=== PATIENT | male | born 1945 | race Caucasian/White ===

== ENCOUNTER 2018-10-13 14:55 | Emergency (ER) | payer MEDICARE, BC ==
[2018-10-13 16:10] LABS: #Eosinphils 0.1 thou/uL (0.0-0.7); #Lymphocytes 1.2 thou/uL (1.20-3.40); #Monocytes 0.8 thou/uL (0.11-0.59); #Neutrophils 7.3 thou/uL (1.40-6.50); %Basophils 0.1 % (0.0-1.0); %Eosinophils 1.5 % (0.0-10.0); %Lymphocytes 12.2 % (21.0-51.0); %Monocytes 8.5 % (0.0-10.0); %Neutrophils 77.6 % (42.0-75.0); Hemoglobin 12.7 g/dL (14.0-18.0); Mean Corpuscular HGB CONC 33.7 g/dL (32.0-36.0); Mean Corpuscular Hemoglobin 29.7 pg (27.0-31.0); Mean Corpuscular Volume 88.3 fL (78.0-98.0); Mean Platelet Volume 7.4 fL (7.4-10.4); Platelet Count 167 thou/uL (130-400); RBC Distribution Width 13.1 % (11.5-14.5); Red Blood Cell (RBC) Count 4.27 mill/uL (4.70-6.10); White Blood Cell (WBC) Count 9.4 thou/uL (4.8-10.8)
[2018-10-13 16:45] LABS: ALT (SGPT) 14 U/L (8-55); AST (SGOT) 13 U/L (5-34); Albumin 3.5 g/dL (3.4-4.8); Alkaline Phosphatase 67 U/L (40-150); Anion Gap 13 mmol/L (10-20); BUN (Urea Nitrogen) 22 mg/dL (8.4-25.7); Bilirubin, Total 0.5 mg/dL (0.2-1.2); Calc. Creatinine Clearance 0 mL/min (70-130); Calcium 9.5 mg/dL (7.8-10.44); Carbon Dioxide 23 mmol/L (23-31); Chloride 107 mmol/L (98-107); Estimated GFR-MDRD Greater than 90; Globulin 2.7 g/dL (2.4-3.5); Potassium 3.7 mmol/L (3.5-5.1); Protein, Total 6.2 g/dL (5.8-8.1); Sodium 139 mmol/L (136-145)
[2018-10-13 17:00] LABS: Glucose 103 mg/dL (83-110)
--- NOTE | 2018-10-13 17:04 | ULT ---
VENOUS DOPPLER ULTRASOUND OF THE LEFT LOWER EXTREMITY: 10/13/18 HISTORY: Left leg edema and pain. TECHNIQUE: Stephenson scale, color flow and spectral doppler imaging of the deep venous system of the left lower extr emity is performed. FINDINGS: There is good flow, compression, and augmentation noted in the left common femoral, femoral, and deep femoral, popliteal, posterior tibial veins and the greater saphenous veins. IMPRESSION: No evidence of DVT in the left lower extremity. POS: OFF
--- NOTE | 2018-10-13 17:08 | RAD ---
LEFT KNEE FOUR VIEWS: 10/13/18 HISTORY: Left knee pain. FINDINGS: Degenerative changes are seen, most prominent in the medial tibiofemoral compartment. No fracture or dislocation is identified. IMPRESSION: Left knee osteoarthritis. POS: OFF
== END 2018-10-13 18:18 | disposition home or self-care (01) ==
LOC: ERS 14:55
DX: M79.89 Other specified soft tissue disorders (principal); I10 Essential (primary) hypertension; E66.9 Obesity, unspecified
CPT/HCPCS: 36415; 80053; 85025

== ENCOUNTER 2019-10-09 14:04 | Emergency (ER) | payer MEDICARE, BC ==
[2019-10-09] MEDS ORDERED: Acetaminophen 500 MG TAB ONE (15:01)
[2019-10-09 15:32] LABS: #Eosinphils 0.2 thou/uL (0.0-0.7); #Lymphocytes 1.4 thou/uL (1.20-3.40); #Monocytes 0.8 thou/uL (0.11-0.59); #Neutrophils 9.2 thou/uL (1.40-6.50); %Basophils 0.3 % (0.0-1.0); %Lymphocytes 11.8 % (21.0-51.0); %Monocytes 6.8 % (0.0-10.0); %Neutrophils 79.1 % (42.0-75.0); Hemoglobin 13.8 g/dL (14.0-18.0); Mean Corpuscular HGB CONC 33.5 g/dL (32.0-36.0); Mean Corpuscular Hemoglobin 29.3 pg (27.0-31.0); Mean Corpuscular Volume 87.4 fL (78.0-98.0); Mean Platelet Volume 8.2 fL (7.4-10.4); Platelet Count 175 thou/uL (130-400); RBC Distribution Width 13.9 % (11.5-14.5); Red Blood Cell (RBC) Count 4.71 mill/uL (4.70-6.10); White Blood Cell (WBC) Count 11.6 thou/uL (4.8-10.8)
--- NOTE | 2019-10-09 15:42 | RAD ---
RIGHT TIBIA AND FIBULA TWO VIEWS: 10/09/19 HISTORY: Fall with right lower extremity injury. There are arthritic changes of the knee. Vascular calcifications are seen. No fracture or dislocation . IMPRESSION: No evidence of fracture. POS: ABBIE
--- NOTE | 2019-10-09 15:42 | ULT ---
RIGHT LOWER EXTREMITY VENOUS DUPLEX EXAM: HISTORY: Right leg pain and swelling. FINDINGS: Real-time color Doppler evaluation of the right lower extremity was performed from groin to calf. Th is includes evaluation of the common femoral, superficial femoral and profunda femoral, saphenous, po pliteal, and posterior tibial veins. This shows a patent deep venous system. There is normal compre ssibility augmentation. There is no evidence of DVT. IMPRESSION: No evidence of deep vein thrombosis of the right lower extremity. POS: ABBIE
[2019-10-09 15:55] LABS: ALT (SGPT) 19 U/L (8-55); AST (SGOT) 14 U/L (5-34); Albumin 3.9 g/dL (3.4-4.8); Alkaline Phosphatase 72 U/L (40-110); Anion Gap 11 mmol/L (10-20); BUN (Urea Nitrogen) 20 mg/dL (8.4-25.7); Bilirubin, Total 0.5 mg/dL (0.2-1.2); Calc. Creatinine Clearance 0 mL/min (70-130); Calcium 9.6 mg/dL (7.8-10.44); Carbon Dioxide 25 mmol/L (23-31); Chloride 107 mmol/L (98-107); Estimated GFR-MDRD 85; Globulin 2.7 g/dL (2.4-3.5); Glucose 102 mg/dL (83-110); Potassium 3.8 mmol/L (3.5-5.1); Protein, Total 6.6 g/dL (5.8-8.1); Sodium 139 mmol/L (136-145)
[2019-10-09] MEDS ORDERED: Bacitracin 1 PK ONE (16:07)
== END 2019-10-09 16:15 | disposition home or self-care (01) ==
LOC: ERS 14:04
DX: L03.115 Cellulitis of right lower limb (principal); S80.811A Abrasion, right lower leg, initial encounter; I10 Essential (primary) hypertension; E66.9 Obesity, unspecified; W01.10XA Fall on same level from slipping, tripping and stumbling with subsequent striking against unspecified object, initial encounter
CPT/HCPCS: 36415; 80053; 85025

== ENCOUNTER 2019-11-19 09:13 | Observation (INO) | payer MEDICARE, BC ==
[2019-11-19] MEDS ORDERED: Iopamidol 370 76% 100 ML VIAL ONE (09:45)
[2019-11-19] MEDS ORDERED: Lidocaine Viscous Sol 2% 15 ml UD Cup ONE (09:48)
[2019-11-19] MEDS ORDERED: methylPREDNISolone Sod Succ/PF 125 MG/2 ML VIAL ONE (09:48)
[2019-11-19] MEDS ORDERED: Pantoprazole 40 MG VIAL ONE (09:48)
[2019-11-19] MEDS ORDERED: Mag-Al 1200 mg/1200 mg/30 ML UDCUP ONE (09:48)
[2019-11-19 10:04] LABS: #Eosinphils 0.2 thou/uL (0.0-0.7); #Monocytes 0.9 thou/uL (0.11-0.59); #Neutrophils 13.3 thou/uL (1.40-6.50); %Basophils 0.1 % (0.0-1.0); %Eosinophils 1.2 % (0.0-10.0); %Lymphocytes 6.7 % (21.0-51.0); %Monocytes 5.9 % (0.0-10.0); %Neutrophils 86.1 % (42.0-75.0); Hemoglobin 13.1 g/dL (14.0-18.0); Mean Corpuscular HGB CONC 32.2 g/dL (32.0-36.0); Mean Corpuscular Hemoglobin 28.1 pg (27.0-31.0); Mean Corpuscular Volume 87.4 fL (78.0-98.0); Mean Platelet Volume 7.9 fL (7.4-10.4); Platelet Count 176 thou/uL (130-400); RBC Distribution Width 13.9 % (11.5-14.5); Red Blood Cell (RBC) Count 4.65 mill/uL (4.70-6.10); White Blood Cell (WBC) Count 15.5 thou/uL (4.8-10.8)
--- NOTE | 2019-11-19 10:04 | RAD ---
PORTABLE CHEST 1 VIEW: Date: 11/19/2019 Time: 0951 hours HISTORY: Chest pain. COMPARISON: 09/26/2012. FINDINGS: The heart size is borderline but stable. The aorta is tortuous. Chronic parenchymal changes are again seen. No lobar consolidation, pneumothoraces, chun pulmonary edema, or pleural effusions are identi fied. IMPRESSION: No acute process. POS: TPC
[2019-11-19 10:29] LABS: ALT (SGPT) 18 U/L (8-55); AST (SGOT) 13 U/L (5-34); Albumin 3.9 g/dL (3.4-4.8); Alkaline Phosphatase 71 U/L (40-110); Anion Gap 12 mmol/L (10-20); BUN (Urea Nitrogen) 19 mg/dL (8.4-25.7); Bilirubin, Total 0.6 mg/dL (0.2-1.2); CK (CPK) 39 U/L (30-200); Calc. Creatinine Clearance 0 mL/min (70-130); Calcium 9.7 mg/dL (7.8-10.44); Carbon Dioxide 25 mmol/L (23-31); Chloride 105 mmol/L (98-107); Estimated GFR-MDRD 87; Glucose 108 mg/dL (83-110); Lipase 24 U/L (8-78); Protein, Total 5.9 g/dL (5.8-8.1); Sodium 138 mmol/L (136-145)
--- NOTE | 2019-11-19 11:40 | CT ---
CT PULMONARY ANGIOGRAM WITH IV CONTRAST AND 3D POSTPROCESSING: Date: 11/19/2019 HISTORY: Dyspnea, chest pain. FINDINGS: There is good contrast opacification in the pulmonary arterial vasculature without filling defects to suggest pulmonary embolism. There are vascular calcifications without aneurysmal dilatation of the t horacic aorta. No pleural or pericardial effusions are seen. No pneumothoraces or lung masses are jesenia ntified. There are atelectatic changes versus infiltrates at the posterior lung bases. There are dege nerative changes in the spine. Abdominal tomograms demonstrate a 2.4 cm left adrenal adenoma (4.4 Iain nsfield units). IMPRESSION: No CT evidence of pulmonary embolism. POS: TPC
[2019-11-19] MEDS ORDERED: Nitroglycerin 2% Ointment 1 INCH/1 GM Packet ONE (11:48)
[2019-11-19] MEDS ORDERED: Morphine 4 MG/ML VIAL ONE (12:36)
[2019-11-19] MEDS ORDERED: Ondansetron PF 4 MG/2 ML Vial ONE (12:37)
[2019-11-19 14:05] LABS: Troponin I Less than 0.010 ng/mL (< 0.028)
[2019-11-19 15:46] VITALS: BMI 44.4
[2019-11-19] MEDS ORDERED: Nitroglycerin 0.4 MG TAB (25 Tab Bottle) PO PRN (18:29)
--- NOTE | 2019-11-19 18:30 | PDOC.EVN ---
Event Note - Event Note Event Note: Note dictated. EKG by my reviewed showed SR/LVF/RBBB.
[2019-11-19] MEDS ORDERED: Ondansetron PF 4 MG/2 ML Vial IVP PRN (18:31)
[2019-11-19] MEDS ORDERED: Acetaminophen 325 MG TAB PO PRN (18:31)
[2019-11-19] MEDS ORDERED: Ondansetron ODT 4 MG TAB PO PRN (18:31)
[2019-11-19] MEDS ORDERED: Calcium Carbonate 500 MG ChewTAB PO PRN (18:31)
[2019-11-19] MEDS ORDERED: hydrALAZINE 20 MG/ML VIAL SLOW IVP PRN (18:32)
--- NOTE | 2019-11-19 19:04 | HP ---
CHIEF COMPLAINT: Chest/epigastric discomfort of one day duration. PRIMARY CARE PHYSICIAN: Catie Anguiano, Dr. Ritter. HISTORY OF PRESENT ILLNESS: The patient is a 74-year-old male with hypertension, morbid obesity with a BMI of 42.6, presented to the emergency room with above complaints. The chest discomfort started this morning. It was localized in the epigastric/lower midsternal region. It was sudden in onset without any aggravating or relieving factor. It was moderate in intensity. The pain sometimes got worse with deep breathing. It was more or less constant. He had associated shortness of breath without any lightheadedness, dizziness, nausea, vomiting, or dyspepsia. He denies recent immobilization or travel. He received aspirin with 2 sprays of nitroglycerin as well as morphine in the emergency room. His chest discomfort has resolved. He denies any heartburn or lower abdominal discomfort. No fever or chills reported. He recently had upper respiratory tract infection. PAST MEDICAL HISTORY: 1. Hypertension. 2. History of prostate cancer. 3. Morbid obesity. PAST SURGICAL HISTORY: Reviewed with the patient and none. ALLERGIES: NO KNOWN DRUG ALLERGIES. CURRENT HOME MEDICATIONS: 1. Amlodipine 10 mg daily. 2. Hydrochlorothiazide 25 mg daily. 3. Lisinopril 40 mg daily. 4. Metoprolol tartrate 25 mg b.i.d. 5. Bactrim 1 tablet b.i.d. for recent right lower extremity cellulitis. FAMILY HISTORY: Negative for premature coronary artery disease. SOCIAL HISTORY: The patient currently lives at home with his . He denies any history of smoking, alcohol, or drug use. He is full code and makes his own decision with the help of his . REVIEW OF SYSTEMS: All other review of systems were reviewed and were found negative. PHYSICAL EXAMINATION: VITAL SIGNS: Temperature 97.9, respirations 22, pulse of 60, blood pressure of 101/51, O2 saturation of 93% on 2 L nasal cannula. Repeat O2 was 92% on room air. GENERAL: A 74-year-old male, in no apparent distress. Denies any chest discomfort. HEENT: Head, atraumatic and normocephalic. Sclerae anicteric. Moist mucous membranes. No oral lesion. NECK: Supple. No JVD appreciated. No carotid bruit. LUNGS: Clear to auscultation bilaterally. No wheezing, rales, or rhonchi. HEART: S1 and S2 present. Regular rate and rhythm. No rubs or gallops. No reproducible chest wall tenderness. ABDOMEN: Soft, nontender. Bowel sounds present. No rebound or guarding. No costovertebral angle tenderness. EXTREMITIES: 2+ edema in bilateral lower extremities. Improving right lower extremity cellulitis. NEUROLOGIC: Grossly nonfocal. Moves all 4 extremities. PSYCHIATRY: Alert, awake, oriented x3. SKIN: Warm and dry. LYMPH NODES: No palpable lymph nodes in the neck. PERIPHERAL VASCULAR: Radial pulses palpable bilaterally. MUSCULOSKELETAL: No joint swelling or tenderness. LABORATORY FINDINGS: CBC showed WBC 15.5 with hemoglobin 13.1, hematocrit 40.7, platelet of 176. Chemistry showed sodium 136, potassium 4, chloride 105, bicarb 25, BUN 19, creatinine 0.86. Troponins were negative. IMAGING STUDIES: CT angiogram of the chest was negative for pulmonary embolism. Chest x-ray by my review was negative for infiltrate or edema. IMPRESSION: 1. Chest discomfort, rule out acute coronary syndrome. 2. Morbid obesity, BMI of 42.6. 3. Hypertension. 4. Recent right lower extremity cellulitis, on Bactrim. 5. Chronic kidney disease stage 2. 6. Leukocytosis of unclear etiology. The patient recently had upper respiratory tract infection which is more or less resolved. No other obvious infectious etiology identified. He also had recent right lower extremity cellulitis. PLAN: The patient will be monitored in the telemetry unit. Serial troponins will be obtained. He denies previous cardiac workup. We will schedule a Cardiolite stress test. Recheck WBC in a.m. We will add low-dose aspirin. We will resume his home medications. The patient understands the above plan of care. Job ID: [id number]
[2019-11-19] MEDS: Sulfameth/Trimethoprim DS 800-160mg TAB PO SCH (20:46)
[2019-11-19] MEDS: Famotidine 20 MG TAB PO SCH (20:46)
[2019-11-19] MEDS: Metoprolol Tartrate 25 MG TAB PO SCH (20:46)
[2019-11-20 05:12] LABS: #Basophils 0.1 thou/uL (0.0-0.2); #Lymphocytes 0.8 thou/uL (1.20-3.40); #Monocytes 1.1 thou/uL (0.11-0.59); %Basophils 0.5 % (0.0-1.0); %Eosinophils 0.1 % (0.0-10.0); %Lymphocytes 4.2 % (21.0-51.0); %Neutrophils 89.2 % (42.0-75.0); Hemoglobin 11.7 g/dL (14.0-18.0); Mean Corpuscular HGB CONC 28.1 g/dL (32.0-36.0); Mean Corpuscular Hemoglobin 24.7 pg (27.0-31.0); Mean Corpuscular Volume 87.7 fL (78.0-98.0); Mean Platelet Volume 7.9 fL (7.4-10.4); Platelet Count 176 thou/uL (130-400); RBC Distribution Width 14.1 % (11.5-14.5); Red Blood Cell (RBC) Count 4.76 mill/uL (4.70-6.10)
[2019-11-20 05:33] LABS: Anion Gap 14 mmol/L (10-20); BUN (Urea Nitrogen) 28 mg/dL (8.4-25.7); Calc. Creatinine Clearance 125 mL/min (70-130); Calcium 9.3 mg/dL (7.8-10.44); Carbon Dioxide 22 mmol/L (23-31); Chloride 103 mmol/L (98-107); Estimated GFR-MDRD 79; Glucose 138 mg/dL (83-110); Potassium 4.5 mmol/L (3.5-5.1); Sodium 134 mmol/L (136-145)
[2019-11-20 08:17] VITALS: TEMP 97.5
[2019-11-20] MEDS ORDERED: Aspirin 325 mg Enteric Coated Tablet PO SCH (09:00)
[2019-11-20] MEDS ORDERED: Lisinopril 20 MG TAB PO SCH (09:00)
[2019-11-20] MEDS ORDERED: Amlodipine 10 MG TAB PO SCH (09:00)
[2019-11-20] MEDS: Sulfameth/Trimethoprim DS 800-160mg TAB PO SCH (09:33)
[2019-11-20] MEDS: Famotidine 20 MG TAB PO SCH (09:34)
[2019-11-20] MEDS: Metoprolol Tartrate 25 MG TAB PO SCH (09:35)
[2019-11-20] MEDS ORDERED: Regadenoson 0.4 MG/5 ML SYRINGE ONE (09:36)
[2019-11-20] MEDS ORDERED: Senokot 8.6 MG TAB PO PRN (14:45)
[2019-11-20] MEDS ORDERED: Polyethylene Glycol 3350 17 GM Packet PO PRN (14:45)
[2019-11-20 15:13] VITALS: BP 155/71
--- NOTE | 2019-11-20 15:40 | NM ---
NUCLEAR MEDICINE CARDIAC STRESS WITH EF AND WALL MOTION: TECHNIQUE: Patient was administered 11 mCi of Technetium 99m sestamibi for rest imaging and 32.0 mCi of techneti um 99m sestamibi for stress imaging. Cardiac gating is performed. FINDINGS: No evidence of a persistent defect or reversibility. TID is 1.14. End-diastolic volume is 167 mL. End-systolic volume is 82 mL. Cardiac gating: Normal wall motion and thickening. 51% ejection fraction. IMPRESSION: 1. No reversibility or fixed defect. 2. 51% ejection fraction. Transcribed Date/Time: 11/20/2019 3:51 PM
--- NOTE | 2019-11-22 07:40 | DIS ---
DATE OF ADMISSION: 11/19/2019 DATE OF DISCHARGE: 11/20/2019 DISCHARGE DISPOSITION: Home. Follow up with primary care physician at [facility], [place] in 1 week. The patient was seen and examined on the day of discharge. Denies any new complaints. No chest pain, shortness of breath palpitations reported. BRIEF HOSPITAL COURSE: The patient is a 74-year-old male with hypertension, morbid obesity, presented to the emergency room with chest/epigastric discomfort of one day duration. His chest discomfort improved after nitroglycerin and morphine in the emergency room. His troponins remained negative. He underwent a Cardiolite stress test that was negative for reversible ischemia. Ejection fraction was 51%. A CT angiogram of the chest was negative for pulmonary embolism. Lifestyle modification was emphasized. He was advised to follow up with his PCP next week. He also had leukocytosis of 15.5 on admission with 86% neutrophil. Repeat WBC this morning was 19 with 89% neutrophils. There is no infectious etiology identified. He denies any urinary symptoms. He was advised to follow up with his primary care physician. Please note that he has recent right lower extremity cellulitis and is on Bactrim. He will benefit from repeat labs next week. FINAL DIAGNOSES: 1. Chest discomfort, acute coronary syndrome ruled out. 2. Morbid obesity with a body mass index of 42.6. 3. Hypertension. 4. Recent right lower extremity cellulitis, on Bactrim. 5. Chronic kidney disease, stage 2. 6. Leukocytosis of unclear etiology. Primary care physician advised to follow. 7. The patient understands the above plan of care. Job ID: [id number]
== END 2019-11-20 17:20 | disposition home or self-care (01) ==
LOC: ERS 09:13 → 2NO 13:06
PROVIDERS: ADMIT Internal Medicine; ATTEND Internal Medicine
DX: R07.89 Other chest pain (principal); R10.13 Epigastric pain; I12.9 Hypertensive chronic kidney disease with stage 1 through stage 4 chronic kidney disease, or unspecified chronic kidney disease; N18.2 Chronic kidney disease, stage 2 (mild); E66.01 Morbid (severe) obesity due to excess calories; L03.115 Cellulitis of right lower limb; D72.829 Elevated white blood cell count, unspecified; Z68.41 Body mass index [BMI] 40.0-44.9, adult; Z79.899 Other long term (current) drug therapy; Z85.46 Personal history of malignant neoplasm of prostate
CPT/HCPCS: 71045; 71275; 78452; 80048; 80053; 82550; 83690; 84484 ×2; 85025 ×2; 93005; 93017; 94664; 94760; A9500; 36415; 96374; 96375; C9113; G0378; J2270; J2405; J2785; J2930; Q9967

== ENCOUNTER 2024-08-24 12:43 | Inpatient (IN) | payer MEDICARE ==
[2024-08-24 14:56] VITALS: BMI 50.5
[2024-08-24] MEDS ORDERED: Bisacodyl 5 MG TAB PO PRN (15:17)
[2024-08-24] MEDS ORDERED: Acetaminophen 650 MG Suppository PR PRN (15:17)
[2024-08-24] MEDS ORDERED: Ondansetron PF 4 MG/2 ML Vial IVP PRN (15:17)
[2024-08-24] MEDS ORDERED: Ondansetron ODT 4 MG TAB PO PRN (15:17)
[2024-08-24] MEDS ORDERED: Calcium Carbonate 500 MG ChewTAB PO PRN (15:17)
[2024-08-24] MEDS: Guaifenesin DM 100-10/5 ML UDCUP PO PRN (16:49)
[2024-08-24] MEDS: Azithromycin 500 MG in Sodium Chloride 0.9% 250 ML 250 ML IVPB SCH (16:49)
[2024-08-24] MEDS ORDERED: cefTRIAXone\\ROCEPHIN 1 GM in Sodium Chloride 0.9% 100 ML IVPB SCH (18:00)
[2024-08-25] MEDS: Acetaminophen 325 MG TAB PO PRN (00:28)
[2024-08-25] MEDS: traMADol HCl 50 MG TAB PO SCH (02:46)
[2024-08-25 06:16] LABS: #Basophils 0.03 10x3/uL (0.0-0.2); %Basophils 0.2 % (0.0-1.0); %Eosinophils 3.6 % (0.0-10.0); %Lymphocytes 7.7 % (21.0-51.0); %Monocytes 6.9 % (0.0-10.0); %Neutrophils 80.8 % (42.0-75.0); Hematocrit 36.7 % (42.0-52.0); Hemoglobin 11.7 g/dL (14.0-18.0); Mean Corpuscular HGB CONC 31.9 g/dL (32.0-36.0); Mean Corpuscular Hemoglobin 28.1 pg (27.0-31.0); Mean Platelet Volume 10.4 fL (7.4-10.4); Platelet Count 192 10x3/uL (130-400); RBC Distribution Width 15.2 % (11.5-14.5); Red Blood Cell (RBC) Count 4.17 mill/uL (4.70-6.10)
[2024-08-25 06:31] LABS: Anion Gap 13 mmol/L (10-20); BUN (Urea Nitrogen) 35 mg/dL (8.4-25.7); Calc. Creatinine Clearance 135 mL/min (70-130); Calcium 8.9 mg/dL (7.8-10.44); Carbon Dioxide 24 mmol/L (23-31); Chloride 107 mmol/L (98-107); Estimated GFR 87; Glucose 194 mg/dL (83-110); Potassium 4.2 mmol/L (3.5-5.1); Sodium 140 mmol/L (136-145)
[2024-08-25] MEDS: cefTRIAXone\\ROCEPHIN 1 GM in Sodium Chloride 0.9% 100 ML IVPB SCH (08:31)
[2024-08-25] MEDS: Amlodipine 10 MG TAB PO SCH (13:16)
[2024-08-25] MEDS: Lisinopril 20 MG TAB PO SCH (13:22)
[2024-08-25] MEDS: Metoprolol Tartrate 25 MG TAB PO SCH (20:18)
[2024-08-26 07:36] LABS: #Basophils 0.03 10x3/uL (0.0-0.2); %Basophils 0.2 % (0.0-1.0); %Eosinophils 4.4 % (0.0-10.0); %Lymphocytes 9.6 % (21.0-51.0); %Monocytes 6.6 % (0.0-10.0); %Neutrophils 77.8 % (42.0-75.0); Hematocrit 39.1 % (42.0-52.0); Hemoglobin 12.3 g/dL (14.0-18.0); Mean Corpuscular HGB CONC 31.5 g/dL (32.0-36.0); Mean Corpuscular Hemoglobin 27.9 pg (27.0-31.0); Mean Corpuscular Volume 88.7 fL (78.0-98.0); Mean Platelet Volume 10.3 fL (7.4-10.4); Platelet Count 190 10x3/uL (130-400); Red Blood Cell (RBC) Count 4.41 mill/uL (4.70-6.10)
[2024-08-26 07:51] LABS: ALT (SGPT) 17 U/L (8-55); AST (SGOT) 12 U/L (5-34); Albumin 2.6 g/dL (3.4-4.8); Alkaline Phosphatase 64 U/L (40-110); Anion Gap 11 mmol/L (10-20); BUN (Urea Nitrogen) 25 mg/dL (8.4-25.7); Bilirubin, Total 0.4 mg/dL (0.2-1.2); Calc. Creatinine Clearance 156 mL/min (70-130); Calcium 9.1 mg/dL (7.8-10.44); Carbon Dioxide 25 mmol/L (23-31); Chloride 107 mmol/L (98-107); Estimated GFR 91; Globulin 3.2 g/dL (2.4-3.5); Glucose 170 mg/dL (83-110); Potassium 4.3 mmol/L (3.5-5.1); Protein, Total 5.8 g/dL (5.8-8.1); Sodium 139 mmol/L (136-145)
[2024-08-26] MEDS: Amlodipine 10 MG TAB PO SCH (08:13)
[2024-08-26] MEDS: Pantoprazole DR 40 MG TAB PO SCH (08:13)
[2024-08-26] MEDS: Hydrochlorothiazide 25 MG TAB PO SCH (08:13)
[2024-08-26] MEDS: Lisinopril 20 MG TAB PO SCH (08:13)
[2024-08-26] MEDS: Morphine 2 MG/ML VIAL SLOW IVP PRN (12:11)
[2024-08-26] MEDS ORDERED: Artificial Tear Ophth Sol 15 ML BOT EA EYE PRN (14:34)
[2024-08-26] MEDS: Gabapentin 300 MG CAP PO SCH (20:38)
[2024-08-27] MEDS ORDERED: Ipratropium/Albuterol 3 ML NEB NEB PRN (03:34)
[2024-08-27 05:55] LABS: #Basophils 0.03 10x3/uL (0.0-0.2); %Basophils 0.2 % (0.0-1.0); %Eosinophils 5.2 % (0.0-10.0); %Lymphocytes 11.2 % (21.0-51.0); %Monocytes 7.9 % (0.0-10.0); %Neutrophils 74.4 % (42.0-75.0); Hematocrit 37.5 % (42.0-52.0); Hemoglobin 11.9 g/dL (14.0-18.0); Mean Corpuscular HGB CONC 31.7 g/dL (32.0-36.0); Mean Corpuscular Hemoglobin 28.2 pg (27.0-31.0); Mean Corpuscular Volume 88.9 fL (78.0-98.0); Mean Platelet Volume 10.4 fL (7.4-10.4); Platelet Count 216 10x3/uL (130-400); RBC Distribution Width 15.2 % (11.5-14.5); Red Blood Cell (RBC) Count 4.22 mill/uL (4.70-6.10)
[2024-08-27 06:36] LABS: ALT (SGPT) 18 U/L (8-55); AST (SGOT) 16 U/L (5-34); Albumin 2.6 g/dL (3.4-4.8); Alkaline Phosphatase 57 U/L (40-110); Anion Gap 13 mmol/L (10-20); BUN (Urea Nitrogen) 27 mg/dL (8.4-25.7); Bilirubin, Total 0.4 mg/dL (0.2-1.2); Calc. Creatinine Clearance 142 mL/min (70-130); Calcium 9.3 mg/dL (7.8-10.44); Carbon Dioxide 21 mmol/L (23-31); Chloride 108 mmol/L (98-107); Estimated GFR 88; Globulin 3.4 g/dL (2.4-3.5); Glucose 147 mg/dL (83-110); Potassium 4.3 mmol/L (3.5-5.1); Sodium 138 mmol/L (136-145)
[2024-08-27] MEDS: Spironolactone 25 MG TAB PO SCH (08:39)
[2024-08-27] MEDS: Lisinopril 20 MG TAB PO SCH (08:51)
[2024-08-28 06:29] LABS: #Basophils 0.04 10x3/uL (0.0-0.2); %Basophils 0.3 % (0.0-1.0); %Eosinophils 5.8 % (0.0-10.0); %Lymphocytes 9.7 % (21.0-51.0); %Monocytes 8.6 % (0.0-10.0); %Neutrophils 74.3 % (42.0-75.0); Hematocrit 37.8 % (42.0-52.0); Hemoglobin 11.7 g/dL (14.0-18.0); Mean Corpuscular Hemoglobin 27.7 pg (27.0-31.0); Mean Corpuscular Volume 89.4 fL (78.0-98.0); Mean Platelet Volume 10.3 fL (7.4-10.4); Platelet Count 194 10x3/uL (130-400); RBC Distribution Width 14.9 % (11.5-14.5); Red Blood Cell (RBC) Count 4.23 mill/uL (4.70-6.10)
[2024-08-28 07:06] LABS: ALT (SGPT) 21 U/L (8-55); AST (SGOT) 14 U/L (5-34); Albumin 2.4 g/dL (3.4-4.8); Alkaline Phosphatase 56 U/L (40-110); Anion Gap 13 mmol/L (10-20); BUN (Urea Nitrogen) 31 mg/dL (8.4-25.7); Bilirubin, Total 0.4 mg/dL (0.2-1.2); Calc. Creatinine Clearance 134 mL/min (70-130); Calcium 8.9 mg/dL (7.8-10.44); Carbon Dioxide 24 mmol/L (23-31); Chloride 108 mmol/L (98-107); Estimated GFR 87; Globulin 3.3 g/dL (2.4-3.5); Glucose 151 mg/dL (83-110); Potassium 4.4 mmol/L (3.5-5.1); Protein, Total 5.7 g/dL (5.8-8.1); Sodium 141 mmol/L (136-145)
[2024-08-28] MEDS: Senokot S 8.6-50 MG TAB PO PRN (19:53)
[2024-08-29 05:36] LABS: #Basophils 0.04 10x3/uL (0.0-0.2); %Basophils 0.3 % (0.0-1.0); %Eosinophils 4.2 % (0.0-10.0); %Lymphocytes 9.8 % (21.0-51.0); %Monocytes 7.1 % (0.0-10.0); %Neutrophils 77.2 % (42.0-75.0); Hematocrit 36.6 % (42.0-52.0); Hemoglobin 11.5 g/dL (14.0-18.0); Mean Corpuscular HGB CONC 31.4 g/dL (32.0-36.0); Mean Corpuscular Hemoglobin 28.3 pg (27.0-31.0); Mean Corpuscular Volume 90.1 fL (78.0-98.0); Mean Platelet Volume 10.5 fL (7.4-10.4); Platelet Count 167 10x3/uL (130-400); RBC Distribution Width 14.8 % (11.5-14.5); Red Blood Cell (RBC) Count 4.06 mill/uL (4.70-6.10)
[2024-08-29 06:25] LABS: ALT (SGPT) 30 U/L (8-55); AST (SGOT) 22 U/L (5-34); Albumin 2.3 g/dL (3.4-4.8); Alkaline Phosphatase 51 U/L (40-110); Anion Gap 13 mmol/L (10-20); BUN (Urea Nitrogen) 27 mg/dL (8.4-25.7); Bilirubin, Total 0.4 mg/dL (0.2-1.2); Calc. Creatinine Clearance 140 mL/min (70-130); Calcium 8.8 mg/dL (7.8-10.44); Carbon Dioxide 24 mmol/L (23-31); Chloride 107 mmol/L (98-107); Estimated GFR 88; Globulin 3.1 g/dL (2.4-3.5); Glucose 173 mg/dL (83-110); Potassium 4.2 mmol/L (3.5-5.1); Protein, Total 5.4 g/dL (5.8-8.1); Sodium 140 mmol/L (136-145)
[2024-08-30 12:17] VITALS: BP 148/69; TEMP 97.5
== END 2024-08-30 18:36 | DRG 194 ==
LOC: T4-A 13:53 → OBSVTOIN 15:17
PROVIDERS: ADMIT Internal Medicine; ATTEND Internal Medicine
DX: J18.9 Pneumonia, unspecified organism (principal); Z68.43 Body mass index [BMI] 50.0-59.9, adult; I10 Essential (primary) hypertension; N40.0 Benign prostatic hyperplasia without lower urinary tract symptoms; E66.01 Morbid (severe) obesity due to excess calories; R09.02 Hypoxemia; S81.802A Unspecified open wound, left lower leg, initial encounter; S81.801A Unspecified open wound, right lower leg, initial encounter; X58.XXXA Exposure to other specified factors, initial encounter; Z79.899 Other long term (current) drug therapy; G89.29 Other chronic pain; M79.606 Pain in leg, unspecified
CPT/HCPCS: 36415; 80048; 80053; 85025; 97139; J0456; J0696; J2272; J7050

== ENCOUNTER 2024-08-30 21:44 | Emergency (ER) | payer MEDICARE ==
[2024-08-30] MEDS ORDERED: Morphine 4 MG/ML VIAL ONE (22:12)
== END 2024-08-30 23:03 ==
LOC: ERS 21:44
DX: G89.29 Other chronic pain (principal); M79.606 Pain in leg, unspecified; I10 Essential (primary) hypertension
CPT/HCPCS: J2272

== ENCOUNTER 2024-08-31 23:03 | Emergency (ER) | payer MEDICARE | END 2024-09-01 07:57 | disposition home or self-care (01) | LOC: ERS 23:03 | DX: J18.9 Pneumonia, unspecified organism (principal); I10 Essential (primary) hypertension | CPT/HCPCS: 99283 ==

== ENCOUNTER 2024-09-01 08:40 | Emergency (ER) | payer MEDICARE | END 2024-09-01 09:08 | LOC: ERS 08:40 | DX: Z00.00 Encounter for general adult medical examination without abnormal findings (principal); I10 Essential (primary) hypertension | CPT/HCPCS: 99282; 99283 ==

== ENCOUNTER 2025-04-25 22:21 | Inpatient (IN) | payer MEDICARE ==
[2025-04-25 23:21] LABS: Bacteria/HPF 4+ HPF (None Seen); CAUTI Indications for Culture Acute Hematuria; Glucose, Urine (Dipstick) Normal (Negative); Leukocyte 500 Leu/uL (Negative); Protein, Urine (Dipstick) 100 mg/dL (Neg-Trace); RBC/HPF Greater than 50 HPF (0-3); Specific Gravity, Urine 1.010 (1.002-1.036); WBC/HPF Greater than 50 HPF (0-3)
[2025-04-25 23:22] LABS: Urine Culture Reflex Yes Yes
[2025-04-25 23:50] LABS: #Basophils 0.06 10x3/uL (0.0-0.2); #Eosinophils 0.50 10x3/uL (0.0-0.7); #Monocytes 1.04 10x3/uL (0.11-0.59); #Neutrophils 13.97 10x3/uL (1.40-6.50); %Basophils 0.4 % (0.0-1.0); %Eosinophils 3.0 % (0.0-10.0); %Lymphocytes 5.2 % (21.0-51.0); %Monocytes 6.3 % (0.0-10.0); %Neutrophils 84.6 % (42.0-75.0); Hematocrit 36.4 % (42.0-52.0); Hemoglobin 11.3 g/dL (14.0-18.0); Mean Corpuscular Hemoglobin 26.8 pg (27.0-31.0); Mean Corpuscular Volume 86.5 fL (78.0-98.0); Platelet Count 244 10x3/uL (130-400); Red Blood Cell (RBC) Count 4.21 mill/uL (4.70-6.10); White Blood Cell (WBC) Count 16.51 10x3/uL (4.8-10.8)
[2025-04-26 00:04] LABS: ALT (SGPT) 12 U/L (Less than 45); AST (SGOT) 12 U/L (11-34); Albumin 2.7 g/dL (3.1-4.5); Alkaline Phosphatase 61 U/L (40-110); Anion Gap 13 mmol/L (10-20); BUN (Urea Nitrogen) 44 mg/dL (8.4-25.7); Bilirubin, Total 0.4 mg/dL (0.3-1.2); Calc. Creatinine Clearance 0 mL/min (70-130); Calcium 9.1 mg/dL (7.8-10.44); Carbon Dioxide 21 mmol/L (23-31); Chloride 108 mmol/L (98-107); Globulin 3.2 g/dL (2.4-3.5); Glucose 120 mg/dL (83-110); Potassium 4.4 mmol/L (3.5-5.1); Sodium 138 mmol/L (136-145)
[2025-04-26] MEDS ORDERED: Senokot S 8.6-50 MG TAB PO PRN (01:57)
[2025-04-26] MEDS ORDERED: Ondansetron PF 4 MG/2 ML Vial IVP PRN (01:57)
[2025-04-26] MEDS ORDERED: Calcium Carbonate 500 MG ChewTAB PO PRN (01:57)
[2025-04-26] MEDS ORDERED: cefTRIAXone (ROCEPHIN) 2 GM VIAL ONE (02:22)
[2025-04-26] MEDS ORDERED: hydrALAZINE 20 MG/ML VIAL SLOW IVP PRN (03:08)
[2025-04-26 05:36] VITALS: BMI 44.4
[2025-04-26] MEDS ORDERED: Gabapentin 100 MG CAP PO SCH (09:00)
[2025-04-26 09:02] LABS: #Basophils 0.03 10x3/uL (0.0-0.2); #Eosinophils 0.41 10x3/uL (0.0-0.7); #Monocytes 0.79 10x3/uL (0.11-0.59); #Neutrophils 13.35 10x3/uL (1.40-6.50); %Basophils 0.2 % (0.0-1.0); %Eosinophils 2.7 % (0.0-10.0); %Lymphocytes 4.8 % (21.0-51.0); %Monocytes 5.1 % (0.0-10.0); %Neutrophils 86.6 % (42.0-75.0); Hematocrit 35.2 % (42.0-52.0); Hemoglobin 11.0 g/dL (14.0-18.0); Mean Corpuscular Hemoglobin 27.0 pg (27.0-31.0); Mean Corpuscular Volume 86.5 fL (78.0-98.0); Platelet Count 210 10x3/uL (130-400); Red Blood Cell (RBC) Count 4.07 mill/uL (4.70-6.10); White Blood Cell (WBC) Count 15.41 10x3/uL (4.8-10.8)
[2025-04-26 09:13] LABS: Anion Gap 12 mmol/L (10-20); BUN (Urea Nitrogen) 37 mg/dL (8.4-25.7); Calc. Creatinine Clearance 68 mL/min (70-130); Calcium 9.0 mg/dL (7.8-10.44); Carbon Dioxide 23 mmol/L (23-31); Chloride 108 mmol/L (98-107); Glucose 143 mg/dL (83-110); Potassium 4.3 mmol/L (3.5-5.1); Sodium 139 mmol/L (136-145)
[2025-04-26] MEDS: NIFEdipine XL 30 MG ER.TAB PO SCH (09:31)
[2025-04-26] MEDS: Gabapentin 300 MG CAP PO SCH (09:32)
[2025-04-26 15:29] VITALS: BMI 44.4
[2025-04-26] MEDS: Melatonin 3 MG TAB PO PRN (20:45)
[2025-04-26] MEDS: Acetaminophen 325 MG TAB PO PRN (20:46)
[2025-04-27] MEDS: cefTRIAXone\\ROCEPHIN 1 GM in Sodium Chloride 0.9% 100 ML IVPB SCH (01:18)
[2025-04-27 07:47] LABS: #Basophils 0.05 10x3/uL (0.0-0.2); #Eosinophils 0.58 10x3/uL (0.0-0.7); #Monocytes 0.88 10x3/uL (0.11-0.59); #Neutrophils 10.28 10x3/uL (1.40-6.50); %Basophils 0.4 % (0.0-1.0); %Eosinophils 4.5 % (0.0-10.0); %Lymphocytes 8.9 % (21.0-51.0); %Monocytes 6.8 % (0.0-10.0); %Neutrophils 78.8 % (42.0-75.0); Hematocrit 33.4 % (42.0-52.0); Hemoglobin 10.2 g/dL (14.0-18.0); Mean Corpuscular Hemoglobin 26.8 pg (27.0-31.0); Mean Corpuscular Volume 87.7 fL (78.0-98.0); Platelet Count 210 10x3/uL (130-400); Red Blood Cell (RBC) Count 3.81 mill/uL (4.70-6.10); White Blood Cell (WBC) Count 13.03 10x3/uL (4.8-10.8)
[2025-04-27 09:23] VITALS: TEMP 97.6
[2025-04-27 10:20] LABS: Anion Gap 14 mmol/L (10-20); BUN (Urea Nitrogen) 30 mg/dL (8.4-25.7); Calc. Creatinine Clearance 83 mL/min (70-130); Calcium 9.4 mg/dL (7.8-10.44); Carbon Dioxide 21 mmol/L (23-31); Chloride 110 mmol/L (98-107); Glucose 166 mg/dL (83-110); Potassium 4.7 mmol/L (3.5-5.1); Sodium 140 mmol/L (136-145)
[2025-04-27 13:06] VITALS: BP 140/48
== END 2025-04-27 13:34 | DRG 690 ==
LOC: ERS 22:21 → ERHOLD 04-26 01:09 → MSONC 04-26 05:30
PROVIDERS: ADMIT Internal Medicine; ATTEND Internal Medicine
DX: N39.0 Urinary tract infection, site not specified (principal); N17.9 Acute kidney failure, unspecified; M19.90 Unspecified osteoarthritis, unspecified site; D63.8 Anemia in other chronic diseases classified elsewhere; J44.9 Chronic obstructive pulmonary disease, unspecified; I73.9 Peripheral vascular disease, unspecified; N40.1 Benign prostatic hyperplasia with lower urinary tract symptoms; I10 Essential (primary) hypertension; R31.0 Gross hematuria; B96.4 Proteus (mirabilis) (morganii) as the cause of diseases classified elsewhere; K21.9 Gastro-esophageal reflux disease without esophagitis; Z86.718 Personal history of other venous thrombosis and embolism; Z79.01 Long term (current) use of anticoagulants; Z79.899 Other long term (current) drug therapy; Z98.890 Other specified postprocedural states
CPT/HCPCS: 36415; 51701; 80048; 80053; 81001; 84153; 85025; 87077; 87086; 87186; 96365; 96366; 97139; J0696; J7030

== ENCOUNTER 2025-05-05 07:10 | Inpatient (IN) | payer MEDICARE ==
[2025-05-05] MEDS ORDERED: HYDROmorphone 0.5 MG/0.5 ML SYRINGE ONE (07:42)
[2025-05-05] MEDS ORDERED: Ondansetron PF 4 MG/2 ML Vial ONE (07:42)
[2025-05-05 07:45] LABS: #Basophils 0.05 10x3/uL (0.0-0.2); #Eosinophils 0.39 10x3/uL (0.0-0.7); #Monocytes 0.93 10x3/uL (0.11-0.59); #Neutrophils 14.52 10x3/uL (1.40-6.50); %Basophils 0.3 % (0.0-1.0); %Eosinophils 2.2 % (0.0-10.0); %Lymphocytes 10.7 % (21.0-51.0); %Monocytes 5.2 % (0.0-10.0); %Neutrophils 81.0 % (42.0-75.0); Hematocrit 39.8 % (42.0-52.0); Hemoglobin 12.4 g/dL (14.0-18.0); Mean Corpuscular Hemoglobin 26.5 pg (27.0-31.0); Mean Corpuscular Volume 85.0 fL (78.0-98.0); Platelet Count 256 10x3/uL (130-400); Red Blood Cell (RBC) Count 4.68 mill/uL (4.70-6.10); White Blood Cell (WBC) Count 17.91 10x3/uL (4.8-10.8)
[2025-05-05 07:57] LABS: ALT (SGPT) 14 U/L (Less than 45); AST (SGOT) 17 U/L (11-34); Albumin 2.9 g/dL (3.1-4.5); Alkaline Phosphatase 61 U/L (40-110); Anion Gap 13 mmol/L (10-20); BUN (Urea Nitrogen) 28 mg/dL (8.4-25.7); Bilirubin, Total 0.4 mg/dL (0.3-1.2); Calc. Creatinine Clearance 0 mL/min (70-130); Calcium 9.7 mg/dL (7.8-10.44); Carbon Dioxide 28 mmol/L (23-31); Chloride 105 mmol/L (98-107); Globulin 3.5 g/dL (2.4-3.5); Glucose 117 mg/dL (83-110); Potassium 4.3 mmol/L (3.5-5.1); Sodium 142 mmol/L (136-145)
[2025-05-05] MEDS ORDERED: cefTRIAXone (ROCEPHIN) 1 GM VIAL ONE (09:21)
[2025-05-05 10:04] LABS: Bacteria/HPF None Seen HPF (None Seen); CAUTI Indications for Culture Urological Procedure; RBC/HPF Greater than 50 HPF (0-3)
[2025-05-05 10:19] VITALS: BMI 39.5
[2025-05-05 10:27] LABS: Glucose, Urine (Dipstick) 70 mg/dL (Negative); Leukocyte 25 Leu/uL (Negative); Protein, Urine (Dipstick) 100 mg/dL (Neg-Trace); Specific Gravity, Urine 1.015 (1.002-1.036)
[2025-05-05 10:33] LABS: Urine Culture Reflex Yes Yes
[2025-05-05] MEDS ORDERED: hydrALAZINE 20 MG/ML VIAL SLOW IVP PRN (11:46)
[2025-05-05] MEDS ORDERED: Ondansetron PF 4 MG/2 ML Vial IVP PRN (11:46)
[2025-05-05] MEDS ORDERED: Iopamidol-370 76% 500 ML MDV (1 ML CHARGE) ONE (12:44)
[2025-05-05] MEDS: HYDROcodone/Acetaminophen 5/325 mg Tablet PO PRN (17:04)
[2025-05-05] MEDS: Famotidine 20 MG TAB PO SCH (19:57)
[2025-05-05] MEDS: Gabapentin 300 MG CAP PO SCH (19:57)
[2025-05-05] MEDS: Acetaminophen 500 MG TAB PO PRN (19:58)
[2025-05-06] MEDS: PNEUMOC 20-VAL CONJ-DIP CRM/PF 0.5 ML SYRINGE IM ONE (01:05)
[2025-05-06 06:09] LABS: #Basophils 0.05 10x3/uL (0.0-0.2); #Eosinophils 0.49 10x3/uL (0.0-0.7); #Monocytes 0.93 10x3/uL (0.11-0.59); #Neutrophils 10.42 10x3/uL (1.40-6.50); %Basophils 0.4 % (0.0-1.0); %Eosinophils 3.6 % (0.0-10.0); %Lymphocytes 12.7 % (21.0-51.0); %Monocytes 6.8 % (0.0-10.0); %Neutrophils 75.9 % (42.0-75.0); Hematocrit 33.6 % (42.0-52.0); Hemoglobin 10.4 g/dL (14.0-18.0); Mean Corpuscular Hemoglobin 26.7 pg (27.0-31.0); Mean Corpuscular Volume 86.2 fL (78.0-98.0); Platelet Count 236 10x3/uL (130-400); Red Blood Cell (RBC) Count 3.90 mill/uL (4.70-6.10); White Blood Cell (WBC) Count 13.71 10x3/uL (4.8-10.8)
[2025-05-06 06:29] LABS: ALT (SGPT) 12 U/L (Less than 45); AST (SGOT) 12 U/L (11-34); Albumin 2.5 g/dL (3.1-4.5); Alkaline Phosphatase 53 U/L (40-110); Anion Gap 10 mmol/L (10-20); BUN (Urea Nitrogen) 25 mg/dL (8.4-25.7); Bilirubin, Total 0.3 mg/dL (0.3-1.2); Calc. Creatinine Clearance 109 mL/min (70-130); Calcium 8.9 mg/dL (7.8-10.44); Carbon Dioxide 24 mmol/L (23-31); Chloride 106 mmol/L (98-107); Globulin 3.0 g/dL (2.4-3.5); Glucose 110 mg/dL (83-110); Potassium 4.0 mmol/L (3.5-5.1); Sodium 136 mmol/L (136-145)
[2025-05-06] MEDS: Mometasone 200 MCG/Formoterol 5 MCG 120 PUFF INHALER INH SCH (07:01)
[2025-05-06] MEDS: Spironolactone 25 MG TAB PO SCH (09:30)
[2025-05-06] MEDS: Furosemide 20 MG TAB PO SCH (09:31)
[2025-05-06] MEDS: Lisinopril 20 MG TAB PO SCH (09:31)
[2025-05-06] MEDS: NIFEdipine XL 30 MG ER.TAB PO SCH (09:31)
[2025-05-06] MEDS: hydrALAZINE 10 MG TAB PO SCH (09:31)
[2025-05-06] MEDS: cefTRIAXone\\ROCEPHIN 2 GM in Sodium Chloride 0.9% 100 ML IVPB SCH (09:32)
[2025-05-07 05:40] LABS: #Basophils 0.06 10x3/uL (0.0-0.2); #Eosinophils 0.50 10x3/uL (0.0-0.7); #Monocytes 0.91 10x3/uL (0.11-0.59); #Neutrophils 10.40 10x3/uL (1.40-6.50); %Basophils 0.4 % (0.0-1.0); %Eosinophils 3.7 % (0.0-10.0); %Lymphocytes 12.5 % (21.0-51.0); %Monocytes 6.7 % (0.0-10.0); %Neutrophils 76.2 % (42.0-75.0); Hematocrit 35.3 % (42.0-52.0); Hemoglobin 10.9 g/dL (14.0-18.0); Mean Corpuscular Hemoglobin 26.8 pg (27.0-31.0); Mean Corpuscular Volume 86.7 fL (78.0-98.0); Platelet Count 218 10x3/uL (130-400); Red Blood Cell (RBC) Count 4.07 mill/uL (4.70-6.10); White Blood Cell (WBC) Count 13.64 10x3/uL (4.8-10.8)
[2025-05-07 06:26] LABS: Anion Gap 10 mmol/L (10-20); BUN (Urea Nitrogen) 22 mg/dL (8.4-25.7); Calc. Creatinine Clearance 123 mL/min (70-130); Calcium 9.0 mg/dL (7.8-10.44); Carbon Dioxide 25 mmol/L (23-31); Chloride 106 mmol/L (98-107); Glucose 96 mg/dL (83-110); Potassium 4.4 mmol/L (3.5-5.1); Sodium 137 mmol/L (136-145)
[2025-05-07] MEDS: Amoxicillin/Potassium Clav 875 MG TAB PO SCH (20:27)
[2025-05-08 06:02] LABS: #Basophils 0.07 10x3/uL (0.0-0.2); #Eosinophils 0.49 10x3/uL (0.0-0.7); #Monocytes 0.86 10x3/uL (0.11-0.59); #Neutrophils 10.48 10x3/uL (1.40-6.50); %Basophils 0.5 % (0.0-1.0); %Eosinophils 3.6 % (0.0-10.0); %Lymphocytes 12.2 % (21.0-51.0); %Monocytes 6.3 % (0.0-10.0); %Neutrophils 76.8 % (42.0-75.0); Hematocrit 34.3 % (42.0-52.0); Hemoglobin 10.5 g/dL (14.0-18.0); Mean Corpuscular Hemoglobin 26.7 pg (27.0-31.0); Mean Corpuscular Volume 87.3 fL (78.0-98.0); Platelet Count 209 10x3/uL (130-400); Red Blood Cell (RBC) Count 3.93 mill/uL (4.70-6.10); White Blood Cell (WBC) Count 13.64 10x3/uL (4.8-10.8)
[2025-05-08 06:22] LABS: Anion Gap 10 mmol/L (10-20); BUN (Urea Nitrogen) 23 mg/dL (8.4-25.7); Calc. Creatinine Clearance 131 mL/min (70-130); Calcium 9.2 mg/dL (7.8-10.44); Carbon Dioxide 26 mmol/L (23-31); Chloride 104 mmol/L (98-107); Glucose 95 mg/dL (83-110); Potassium 4.2 mmol/L (3.5-5.1)
[2025-05-08 06:27] LABS: Sodium 136 mmol/L (136-145)
[2025-05-08 16:08] VITALS: BP 156/61; TEMP 98.2
== END 2025-05-08 17:12 | DRG 696 ==
LOC: ERS 07:10 → ERHOLD 09:55 → T4-B 11:56 → OBSVTOIN 05-06 13:54
PROVIDERS: ADMIT Family Medicine; ATTEND Internal Medicine
DX: R31.0 Gross hematuria (principal); N39.0 Urinary tract infection, site not specified; Z79.2 Long term (current) use of antibiotics; K59.00 Constipation, unspecified; M48.00 Spinal stenosis, site unspecified; D64.9 Anemia, unspecified; C61 Malignant neoplasm of prostate; J44.9 Chronic obstructive pulmonary disease, unspecified; G62.9 Polyneuropathy, unspecified; M19.90 Unspecified osteoarthritis, unspecified site; Z98.890 Other specified postprocedural states; I10 Essential (primary) hypertension; K21.9 Gastro-esophageal reflux disease without esophagitis; Z86.718 Personal history of other venous thrombosis and embolism; Z79.899 Other long term (current) drug therapy; Z79.84 Long term (current) use of oral hypoglycemic drugs
CPT/HCPCS: 36415; 36416; 51702; 74177; 80048; 80053; 81001; 84153; 85025; 87086; 93970; 96365; 96366; 96375; G0378; J0696; J1171; J2405; Q9967